=== PATIENT | female | born 1935 | race Caucasian/White ===

== ENCOUNTER 2018-01-01 15:29 | Inpatient (IN) | payer MEDICARE, BC ==
[~2018-01-01] VITALS: Ht 165.1 cm; Wt 70.7 kg
[~2018-01-01 15:29] MED LIST: ADVIL200 MG PO; CEPHALEXIN500 M1 PO; CLEOCIN HCL300 MG PO; COSOPT 2%-0.5%10 ML OU; EPA/GLA1 SGL PO; NORCO 325 MG-51 TAB PO; PLAQUENIL 200M200 MG PO; PREDNISONE20 MG PO
[2018-03-05] VITALS (11 sets, daily range): BP systolic 112–160; BP diastolic 35–98; PULSE 59–87; TEMP 97.8–98.8
[2018-03-05] MEDS ORDERED: NORVASC 5MG5 MG/TAB PO (06:01)
[2018-03-05] MEDS ORDERED: MOBIC 7.5MG7.5 MG PO (06:02)
[2018-03-05] MEDS ORDERED: FOLIC ACID0.4 MG PO (06:04)
[2018-03-05] MEDS ORDERED: VTAMINC250TA (06:06)
[2018-03-05 06:10] LABS: BASO # 0.1 (0.0-0.2); BASO % 0.7 % (0.0-2.0); EOS # 0.3 (0.0-0.7); EOS % 3.1 % (0-4.0); GRAN # 5.7 (1.4-6.5); GRAN % 66.8 % (42.2-75.2); LYMPH # 1.3 (1.2-3.4); LYMPH % 15.2 % (20.0-51.0); MEAN CELL VOLUME 95 fl (80.0-100.0); MEAN CORPUSCULAR HGB CONC 32 g/dl (33.0-37.0); MEAN PLATELET VOLUME 10.8 fl (7.4-10.4); MONO # 1.2 (0.1-0.6); MONO % 13.8 % (1.7-9.3); PLATELET COUNT 189 K/mm3 (130-400); RED BLOOD COUNT 3.73 M/mm3 (4.10-5.30); REDCELL DISTRIBUTION WIDTH-CV 14.1 % (11.5-14.5)
[2018-03-05 06:15] LABS: CALCIUM 9.5 mg/dL (8.4-10.2); CREATININE, serum 1.11 mg/dL (0.52-1.25)
[2018-03-05 06:20] LABS: HEMATOCRIT 35.4 % (37.0-47.0); HEMOGLOBIN 11.4 g/dl (12.5-16.0); MEAN CORPUSCULAR HEMOGLOBIN 31 pg (27.0-31.0)
[2018-03-06 00:24] VITALS: BP 140/44; PULSE 62; TEMP 98.1
[2018-03-06 04:49] VITALS: BP 133/40; PULSE 64; TEMP 98.6
[2018-03-06 06:15] LABS: HEMATOCRIT 30.2 % (37.0-47.0); HEMOGLOBIN 9.7 g/dl (12.5-16.0)
[2018-03-06 07:53] VITALS: BP 140/41; PULSE 62; TEMP 97.6
[2018-03-06 11:35] VITALS: BP 111/53; PULSE 61; TEMP 96.6
[2018-03-06 16:00] VITALS: BP 116/42; PULSE 64; TEMP 97.6
[2018-03-06 20:49] VITALS: BP 107/35; PULSE 61; TEMP 98.2
[2018-03-07] VITALS (7 sets, daily range): BP systolic 98–127; BP diastolic 31–59; PULSE 68–93; TEMP 97.4–99.7
[2018-03-08 04:58] VITALS: BP 146/68; PULSE 70; TEMP 98.4
[2018-03-08] MEDS ORDERED: XARELTO10 MG PO (06:47)
[2018-03-08] MEDS ORDERED: NORCO 325 MG-7.1 TAB PO (06:48)
[2018-03-08] MEDS ORDERED: ROXICODONE 55 MG/TAB PO (06:49)
[2018-03-08 08:02] VITALS: BP 129/49; PULSE 90; TEMP 99.7
[2018-03-08 11:34] VITALS: BP 142/42; PULSE 98; TEMP 98.6
== END 2018-03-08 14:00 | disposition home or self-care (01) | DRG 470 ==
LOC: JCC 03-05 05:17
PROVIDERS: Nurse Anesthetist, Certified Registered; Orthopaedic Surgery
PROC: 0SRC0J9 Replacement of Right Knee Joint with Synthetic Substitute, Cemented, Open Approach (ICD-10-PCS; principal; 2018-03-05 07:30)
DX: M17.11 Unilateral primary osteoarthritis, right knee (principal); I10 Essential (primary) hypertension; Z95.0 Presence of cardiac pacemaker
CPT/HCPCS: A4314; A9284; C1713; C1776; J0690; J1100; J1170; J2250; J2370; J2405; J2704; J7120

== ENCOUNTER → 2018-02-14 | Outpatient (CLI) | payer MEDICARE, BC ==
[~2018-02-14] MED LIST changes: -COSOPT 2%-0.5%10 ML OU; +COSOPT EYE DROPS5 ML OP
[2018-02-14 18:01] LABS: HIV 1/2 Antibodies Non-Reactive; HIV-1p24 Antigen Non-Reactive
== END ==
LOC: COL.LAB 16:41
PROVIDERS: Orthopaedic Surgery
DX: Z01.812 Encounter for preprocedural laboratory examination (principal); M17.11 Unilateral primary osteoarthritis, right knee

== ENCOUNTER 2018-04-18 08:51 | Inpatient (IN) | payer MEDICARE, BC ==
[~2018-04-18] VITALS: Ht 165.1 cm; Wt 60.5 kg
[~2018-04-18 08:51] MED LIST changes: +COSOPT 2%-0.5%10 ML OU; -COSOPT EYE DROPS5 ML OP; +FOLIC ACID0.4 MG PO; +MOBIC 7.5MG7.5 MG PO; +NORCO 325 MG-7.1 TAB PO; +NORVASC 5MG5 MG/TAB PO; +ROXICODONE 55 MG/TAB PO; +VTAMINC250TA; +XARELTO10 MG PO
[2018-06-25] VITALS (11 sets, daily range): BP systolic 123–169; BP diastolic 38–63; PULSE 59–84; TEMP 97.2–98.2
[2018-06-25] MEDS ORDERED: TYLENOL 500MG500 MG PO (06:30)
[2018-06-25] MEDS ORDERED: STOOL SOFTENER100 M2 PO (06:31)
[2018-06-25] MEDS ORDERED: LASIX 40MG TABL40 MG PO (06:31)
[2018-06-25] MEDS ORDERED: METAMUCIL3.4 GM/DOS PO (06:32)
[2018-06-25] MEDS ORDERED: MIRALAX PA17 GM/Dose PO (06:33)
[2018-06-25] MEDS ORDERED: CALCIUM CARBON650 M2 PO (06:33)
[2018-06-26] VITALS (7 sets, daily range): BP systolic 112–152; BP diastolic 39–65; PULSE 55–75; TEMP 97.4–98.1
[2018-06-26 07:17] LABS: HEMATOCRIT 27.7 % (37.0-47.0); HEMOGLOBIN 8.5 g/dl (12.5-16.0)
[2018-06-27 04:06] VITALS: BP 139/42; PULSE 69; TEMP 98
[2018-06-27 04:41] LABS: HEMATOCRIT 24.3 % (37.0-47.0); HEMOGLOBIN 7.8 g/dl (12.5-16.0)
[2018-06-27 07:29] VITALS: BP 129/69; PULSE 80; TEMP 98.1
[2018-06-27 11:30] VITALS: BP 149/45; PULSE 70; TEMP 98.1
[2018-06-27 12:50] LABS: HEMATOCRIT 25.7 % (37.0-47.0); HEMOGLOBIN 8.2 g/dl (12.5-16.0)
[2018-06-27] MEDS ORDERED: TYLENOL 500MG500 MG PO (14:31)
[2018-06-27] MEDS ORDERED: XARELTO10 MG PO (14:45)
[2018-06-27] MEDS ORDERED: ROXICODONE 55 MG/TAB PO (14:45)
[2018-06-27] MEDS ORDERED: NORCO 325 MG-7.1 TAB PO (14:45)
[2018-06-27 16:09] VITALS: BP 121/43; PULSE 72; TEMP 98.1
[2018-06-27 19:50] VITALS: BP 141/44; PULSE 94; TEMP 98.9; TEMP 99.8
[2018-06-28 00:21] VITALS: BP 138/46; PULSE 97; TEMP 99; TEMP 99.1
[2018-06-28 04:46] VITALS: BP 134/60; PULSE 98; TEMP 97.9
[2018-06-28 07:29] LABS: HEMATOCRIT 26.5 % (37.0-47.0); HEMOGLOBIN 8.4 g/dl (12.5-16.0)
[2018-06-28 07:42] VITALS: BP 136/58; PULSE 99; TEMP 98.1
[2018-06-28 12:21] VITALS: BP 115/39; PULSE 69; TEMP 98.3
== END 2018-06-28 14:00 | disposition home or self-care (01) | DRG 470 ==
LOC: JCC 06-25 05:07
PROVIDERS: Orthopaedic Surgery
PROC: 0QHC04Z Insertion of Internal Fixation Device into Left Lower Femur, Open Approach (ICD-10-PCS; 2018-06-25)
PROC: 0SRD0J9 Replacement of Left Knee Joint with Synthetic Substitute, Cemented, Open Approach (ICD-10-PCS; principal; 2018-06-25 14:10)
DX: M17.12 Unilateral primary osteoarthritis, left knee (principal); M97.02XA Periprosthetic fracture around internal prosthetic left hip joint, initial encounter; M06.9 Rheumatoid arthritis, unspecified; Z95.0 Presence of cardiac pacemaker; I12.9 Hypertensive chronic kidney disease with stage 1 through stage 4 chronic kidney disease, or unspecified chronic kidney disease; N18.3 Chronic kidney disease, stage 3 (moderate)
CPT/HCPCS: A4314; A9284; C1713; C1776; J0690; J1170; J2250; J2270; J2370; J2405; J2704; J3010; J3260; J7120; L1832

== ENCOUNTER → 2018-06-14 | Outpatient (CLI) | payer MEDICARE, BC ==
[2018-06-14 13:05] LABS: HIV 1/2 Antibodies Non-Reactive; HIV-1p24 Antigen Non-Reactive
== END ==
LOC: COL.LAB 11:27
PROVIDERS: Orthopaedic Surgery
DX: Z01.812 Encounter for preprocedural laboratory examination (principal); M17.12 Unilateral primary osteoarthritis, left knee